=== PATIENT | female | born 1955 | race Caucasian/White ===

== ENCOUNTER 2020-01-04 12:16 | Outpatient (CLI) | payer OTHER | END 2020-01-04 12:17 | disposition home or self-care (01) | LOC: COV 12:16 | PROVIDERS: ATTEND Family Medicine | DX: R05 Cough (principal); M79.10 Myalgia, unspecified site; J02.9 Acute pharyngitis, unspecified; R09.81 Nasal congestion; Z20.828 Contact with and (suspected) exposure to other viral communicable diseases ==